=== PATIENT | male | born 1980 | race Caucasian/White ===

== ENCOUNTER 2016-05-01 23:00 | Emergency (ER) | payer BC ==
[~2016-05-01 23:00] MED LIST: CIPRO PO; EC-NAPROSYN500 MG PO; FLEXERIL PO; LOMOTIL TABLET1 TAB PO; NO MEDICATIONS; PEPTO-BISM525 MG/15 PO; PHENERGAN25 MG PO; ULTRAM PO; VICODIN 5/500 T1 TAB PO
== END 2016-05-02 01:12 | disposition home or self-care (01) ==
LOC: SED 23:00
DX: S01.512A Laceration without foreign body of oral cavity, initial encounter (principal); Z87.891 Personal history of nicotine dependence; W18.00XA Striking against unspecified object with subsequent fall, initial encounter; Y92.9 Unspecified place or not applicable
CPT/HCPCS: 99283